=== PATIENT | male | born 1965 | race Two or more races ===

== ENCOUNTER 2023-02-03 17:59 | Emergency (ER) | payer OTHER ==
[~2023-02-03] VITALS: Ht 170.2 cm; Wt 73.3 kg
[2023-02-03] MEDS ORDERED: AMOX-277 PO (21:39)
[2023-02-03] MEDS ORDERED: TETANUS-DIPTH-ACEL PERTUSSIS 0.5ML SYR Tdap IM ONE (21:45)
== END 2023-02-03 21:56 | disposition home or self-care (01) ==
LOC: ER 17:59
DX: S71.151A Open bite, right thigh, initial encounter (principal); Z98.890 Other specified postprocedural states; W54.0XXA Bitten by dog, initial encounter; Y93.89 Activity, other specified; Y92.89 Other specified places as the place of occurrence of the external cause; Y99.8 Other external cause status
CPT/HCPCS: 90471; 90715